=== PATIENT | female | born 1965 | race Two or more races ===

== ENCOUNTER 2017-02-24 21:01 | Emergency (ER) | payer MEDICAID ==
[~2017-02-24] VITALS: Ht 287 cm; Wt 90.7 kg
--- NOTE | 2017-02-24 21:21 | NUR ---
PT AMBULATORY TO ER BED 8 C/O LOWER BACK/ LT KNEE PAIN; DENIES HEAD TRAUMA,. PT STATES "SLIP AND FELL AT [place]" PT AOX4 RR EVEN AND UNLABORED. NO SOB NOTED. NAD NOTED. NO NVD AT THIS TIME. PT GOWNED AND PLACED ON MONITOR WAITING FOR MD DA SILVA.
--- NOTE | 2017-02-24 21:50 | NUR ---
PT TO CT.
--- NOTE | 2017-02-24 22:10 | NUR ---
PT RETURNED FROM CT.
[2017-02-24 22:21] VITALS: BP 135/68
--- NOTE | 2017-02-25 00:30 | NUR ---
CALLED DAVID FOR F/U ON RESULTS
--- NOTE | 2017-02-25 00:55 | NUR ---
Patient discharged to home in stable condition. Written and verbal after care instructions given. Patient verbalizes understanding of instruction. ambulatory with a steady gait
== END 2017-02-25 00:55 | disposition home or self-care (01) ==
LOC: ER 21:05
DX: S30.0XXA Contusion of lower back and pelvis, initial encounter (principal); S80.01XA Contusion of right knee, initial encounter; S40.012A Contusion of left shoulder, initial encounter; W01.0XXA Fall on same level from slipping, tripping and stumbling without subsequent striking against object, initial encounter; Y92.512 Supermarket, store or market as the place of occurrence of the external cause; Y93.89 Activity, other specified; Y99.8 Other external cause status
CPT/HCPCS: 72192; 72220; 73030; 73564; 99284; A4606; Z7610